=== PATIENT | female | born 1985 | race Two or more races ===

== ENCOUNTER 2025-02-23 09:15 | Inpatient (IN) | payer OTHER ==
[~2025-02-23] VITALS: Ht 162.6 cm; Wt 72.6 kg
[2025-02-23 12:36] LABS: BASO % 0.6 % (0.1-1.2); EOS # 0.07 (0.04-0.54); EOS % 1.1 % (0.7-7.0); LYMPH # 2.04 (1.18-3.74); LYMPH % 32.2 % (19.3-53.1); MEAN PLATELET VOLUME 9.50 fl (9.4-12.4); MONO # 0.49 (0.24-0.82); MONO % 7.7 % (4.7-12.5); NEUT # 3.67 (1.56-6.13); NEUT % 58.1 % (34.0-71.1)
[2025-02-23 12:40] LABS: RED CELL DISTRIBUTION WIDTH 26.5 % (11.6-14.4)
[2025-02-23 12:58] LABS: URINE APPEARANCE Clear; URINE BILIRRUBIN Negative (NEGATIVE); URINE BLOOD Negative; URINE COLOR Yellow; URINE GLUCOSE Negative (NEGATIVE); URINE KETONE Trace (NEGATIVE); URINE LEUKOCYTE Negative; URINE NITRATE Negative; URINE PROTEIN Negative (NEGATIVE); URINE UROBILINOGEN 0.2 E.U./dl
[2025-02-23 13:00] LABS: INR 1.02
[2025-02-23 13:02] LABS: URINE BACTERIA 146.3 uL (0.0-1933); URINE EPITHELIAL CELLS 4.3 uL (0.0-38.8); URINE RBC 12.0 uL (0.0-20.8); URINE WBC 3.2 uL (0.0-23.2)
[2025-02-23 13:03] LABS: URINE CAST 0.14 uL (0.0-1.40)
[2025-02-23] MEDS ORDERED: FOLIVANE-PLUS1 EACH PO (13:15)
[2025-02-23] MEDS ORDERED: NORETHIND-ETH1 EAC1 PO (13:16)
[2025-02-23 13:22] VITALS: BP 113/77
[2025-02-23 13:53] LABS: ALT/SGPT 20.0 U/L (12-78); AST/SGOT 12.0 U/L (15-37); BILIRUBIN TOTAL 0.81 mg/dL (0.3-1.2); BUN CREA RATIO 7.0 (7.0-25.0); CREATININE SERUM 0.7 mg/dL (0.55-1.02); GFR 92.21; GLOBULINA 4.1 G/DL (2.4-3.5); GLUCOSE FASTING 73.0 mg/dL (65-100); OSMOLALITY SERUM 277.0 MOSM/KG (275-295)
[2025-02-23 14:34] LABS: RH POSITIVE
[2025-02-26] MEDS ORDERED: CEFAZOLIN SODIUM 1,000 MG VIAL IV ONE (13:45)
[2025-02-26] MEDS ORDERED: POVIDONE-IODINE 118 ML BOTT TOP ONE (14:00)
[2025-02-26] MEDS ORDERED: METRONIDAZOLE/SODIUM CHLORIDE 500 MG/100 ML PIGGYBACK IV ONE (14:00)
[2025-02-26] MEDS ORDERED: RINGERS SOLUTION,LACTATED 1,000 ML IV SCH (16:00)
[2025-02-26] MEDS ORDERED: ONDANSETRON HCL 2 MG/ML VIAL IV PRN (16:15)
[2025-02-26] MEDS ORDERED: OxyCODONE HCL 5 MG TABLET (ROXICODONE) PO PRN (16:15)
[2025-02-26] MEDS ORDERED: ACETAMINOPHEN 500 MG GEL..CAP PO PRN (16:15)
[2025-02-26] MEDS ORDERED: MORPHINE SULFATE 4 MG/ML VIAL IV ONE ×2 (17:00→19:00)
[2025-02-26] MEDS ORDERED: DOCUSATE SODIUM 100MG CAP PO SCH (17:00)
[2025-02-26 21:47] VITALS: BP 111/69
[2025-02-27 00:05] VITALS: BP 73/38; BP 73/58
[2025-02-27 01:10] VITALS: BP 99/63
[2025-02-27 04:00] VITALS: BP 97/59
[2025-02-27 06:25] LABS: BASO % 0.2 % (0.1-1.2); EOS # 0.04 (0.04-0.54); EOS % 0.4 % (0.7-7.0); LYMPH # 2.10 (1.18-3.74); LYMPH % 21.8 % (19.3-53.1); MEAN PLATELET VOLUME 10.10 fl (9.4-12.4); MONO # 0.89 (0.24-0.82); MONO % 9.3 % (4.7-12.5); NEUT # 6.54 (1.56-6.13); NEUT % 68.0 % (34.0-71.1)
[2025-02-27 06:44] LABS: ALT/SGPT 16.0 U/L (12-78); AST/SGOT 17.0 U/L (15-37); BILIRUBIN TOTAL 1.12 mg/dL (0.3-1.2); BUN CREA RATIO 5.0 (7.0-25.0); CREATININE SERUM 0.56 mg/dL (0.55-1.02); GFR 119.3; GLOBULINA 2.8 G/DL (2.4-3.5); GLUCOSE FASTING 91.0 mg/dL (65-100); OSMOLALITY SERUM 279.0 MOSM/KG (275-295)
[2025-02-27 08:19] VITALS: BP 99/65
[2025-02-27 13:28] VITALS: BP 127/74
[2025-02-27] MEDS ORDERED: IBUPROFEN800 MG PO (14:56)
[2025-02-27] MEDS ORDERED: COLACE100 MG PO (14:56)
[2025-02-27] MEDS ORDERED: OXYCODONE HCL5 MG PO (14:56)
== END 2025-02-27 15:36 | disposition home or self-care (01) | DRG 743 ==
LOC: OB/GYN 02-26 09:15 → O/R 02-26 14:10 → OB/GYN 02-26 17:03
PROVIDERS: ADMIT Student in an Organized Health Care Education/Training Program; ATTEND Student in an Organized Health Care Education/Training Program
PROC: 0UT74ZZ Resection of Bilateral Fallopian Tubes, Percutaneous Endoscopic Approach (ICD-10-PCS; 2025-02-26)
PROC: 0TJB8ZZ Inspection of Bladder, Via Natural or Artificial Opening Endoscopic (ICD-10-PCS; 2025-02-26)
PROC: 0UT94ZZ Resection of Uterus, Percutaneous Endoscopic Approach (ICD-10-PCS; principal; 2025-02-26 14:00)
DX: D25.9 Leiomyoma of uterus, unspecified (principal); N84.0 Polyp of corpus uteri; N80.03 Adenomyosis of the uterus